=== PATIENT | male | born 1965 | race African-American/Black ===

== ENCOUNTER 2022-12-11 21:58 | Emergency (ER) | payer SELFPAY ==
[~2022-12-11] VITALS: Ht 190.5 cm; Wt 117.0 kg
[2022-12-11 22:18] VITALS: BP 149/96
== END 2022-12-12 00:18 | disposition left against medical advice (07) ==
LOC: ER 21:58
DX: Z53.21 Procedure and treatment not carried out due to patient leaving prior to being seen by health care provider (principal)
CPT/HCPCS: 99281